=== PATIENT | male | born 1950 | race Caucasian/White ===

== ENCOUNTER → 2024-01-28 08:54 | Outpatient (REF) | payer MEDICARE, SELFPAY ==
[2024-01-28 11:12] LABS: ALT (SGPT) 32 U/L (0-50); AST (SGOT) 43 U/L (17-59); Albumin 4.4 g/dl (3.5-5.0); Alkaline Phosphatase 51 U/L (38-126); Blood Urea Nitrogen 18 mg/dl (9-20); Carbon Dioxide 27 mmol/L (22-30); Chloride 105 mmol/L (98-107); Glucose 94 mg/dl (70-99); HDL Cholesterol 75 mg/dl; LDL Cholesterol, Calculated 69 mg/dl; Potassium 4.9 mmol/L (3.5-5.1); Sodium 139 mmol/L (135-145); Total Cholesterol 157 mg/dl (50-199); Triglyceride 68 mg/dl (10-149); Very Low Density Lipoprotein 13 mg/dl (0-30); eGFR > 60.00
[2024-01-28 13:14] LABS: Glycohemoglobin (HgbA1c) 6.1 % (4.0-5.6)
== END ==
LOC: REG 08:54
PROVIDERS: ATTENDING PHYSICIAN Family Medicine
DX: R73.03 Prediabetes (principal); E78.5 Hyperlipidemia, unspecified
CPT/HCPCS: 36415; 80053; 80061; 83036

== ENCOUNTER → 2024-08-20 09:46 | Outpatient (REF) | payer MEDICARE, SELFPAY | LOC: RAD 09:46 | PROVIDERS: ATTENDING PHYSICIAN Internal Medicine; FAMILY PHYSICIAN Internal Medicine | DX: I49.1 Atrial premature depolarization (principal); I47.10 Supraventricular tachycardia, unspecified; I63.232 Cerebral infarction due to unspecified occlusion or stenosis of left carotid arteries; I65.23 Occlusion and stenosis of bilateral carotid arteries | CPT/HCPCS: 93225; 93226; 93880 ==

== ENCOUNTER → 2024-08-26 10:16 | Outpatient (REF) | payer MEDICARE, SELFPAY | LOC: HWRCS 10:16 | PROVIDERS: ATTENDING PHYSICIAN Internal Medicine; FAMILY PHYSICIAN Internal Medicine | DX: I35.0 Nonrheumatic aortic (valve) stenosis (principal); I10 Essential (primary) hypertension | CPT/HCPCS: 93306 ==

== ENCOUNTER → 2024-09-02 07:42 | Outpatient (REF) | payer MEDICARE, SELFPAY | LOC: DHCBC/DCA 07:42 | PROVIDERS: ATTENDING PHYSICIAN Internal Medicine; FAMILY PHYSICIAN Internal Medicine | DX: I63.232 Cerebral infarction due to unspecified occlusion or stenosis of left carotid arteries (principal); I65.23 Occlusion and stenosis of bilateral carotid arteries; R07.9 Chest pain, unspecified | CPT/HCPCS: 78452; 93017; A9500; J2785 ==

== ENCOUNTER 2025-07-18 18:16 | Emergency (ER) | payer MEDICARE, SELFPAY ==
[2025-07-18 18:38] VITALS: BP 124/59
[2025-07-18 19:10] LABS: Hematocrit 47.4 % (39.0-52.0); Hemoglobin 15.8 g/dL (13.0-18.0); Mean Corp Hgb Conc. 33.3 g/dL (33.0-37.0); Mean Corpuscular Volume 90.8 fL (80.0-94.0); Nucleated Red Blood Cells % 0 % (-); Platelet Count 159 10^3/uL (130-400); Red Cell Dist. Width 13.0 % (11.5-14.5)
[2025-07-18 19:22] LABS: ALT (SGPT) 41 U/L (0-50); AST (SGOT) 38 U/L (17-59); Albumin 4.4 g/dl (3.5-5.0); Alkaline Phosphatase 59 U/L (38-126); Blood Urea Nitrogen 14 mg/dl (9-20); Calcium 10.1 mg/dl (8.4-10.2); Carbon Dioxide 34 mmol/L (22-30); Chloride 101 mmol/L (98-107); Glucose 116 mg/dl (70-99); Potassium 4.7 mmol/L (3.5-5.1); Sodium 137 mmol/L (135-145); Total Protein 7.4 g/dl (6.3-8.2); eGFR > 60.00
[2025-07-18 20:49] VITALS: BP 116/56
--- NOTE | 2025-07-18 21:23 | ED.SKININJ ---
HPI-Injury
General
Chief Complaint: Head Injury
Source: patient and spouse
Exam Limitations: none
Time Seen by Provider: 07/18/25 20:37
Nursing documentation reviewed up to this point in time: agreed with
History of Present Illness-Injury
Is this injury a work related problem?: No
Is pt an associate of [facility]?: No
Initial Injury comments:
Patient to emergency department after an episode at home states he was sitting in Jacuzzi for approximately 20-25 minutes. States when he got out of the Jacuzzi he had a syncopal episode. He fell back and hit his head on a shelf. Sustained a
laceration to his posterior scalp. Brought to the emergency department by spouse for evaluation. Injury occurred just prior to arrival. He denies any chest pain pressure, shortness of breath. Denies any lightheadedness dizziness blurred vision.
Past History
Past History
ED Past Medical History: HTN and Hypercholesterolemia
Social History
Tobacco: Former smoker
Alcohol: Occasional
Drug: None
Personal:
Living: with family
Review of Systems
Review of Systems
Allergies reviewed?: Yes
All Other Systems: ROS reviewed and negative except as documented in HPI and ROS
Constitutional: Reports no symptoms
EENT: Reports no symptoms
Respiratory: Reports no symptoms
Cardiac: Reports syncope
ABD/GI: Reports no symptoms
: Reports no symptoms
Musculoskeletal: Reports neck pain
Skin: Reports other (Laceration to posterior)
Neurological: Reports no symptoms
Psychiatric: Reports no symptoms
Skin Exam
Laceration
Posterior Scalp:
Length in cm: 3
Orientation: horizontal
Type of Laceration: simple
Any active bleeding?: low grade venous oozing
Distal skin color and temperature: normal-warm & good color
Normal distal neurovascular exam: Yes
Range of motion: full
Phy Exam
General Physical Exam
General Presentation: well appearing and mild distress
General age: appears stated age
General Skin: warm and dry
General Habitus: normal
General Mental: alert
Cardiovascular Exam
Cardiovascular Exam: regular rate/rhythm
Neurological Exam
Neurological Exam: alert, oriented x3, CN II-XII intact, no motor deficits, no sensory deficits and speech normal
Dave Coma Scale
Eye Opening: Spontaneous
Verbal Response: Oriented
Motor Response: Obeys Commands
GCS Total Score: 15
Musculoskeletal Exam
Musculoskeletal Exam: full ROM, no edema and neuro vasc intact
Skin Exam
Skin Exam: normal color, warm/dry, no rash and other (Laceration to posterior scalp)
Psychiatric Exam
Psychiatric Exam: normal mood/affect
Course
Orders/Labs/Results
Orders:
Orders
07/18/25 18:42
CT Cervical Spine W/o Iv Contr Urgent
Comment:
Reason For Exam: syncope and head injury
CT Head W/o Iv Contrast Urgent
Comment:
Reason For Exam: syncope and head injury
07/18/25 18:43
EKG [Electrocardiogram (*1)] Urgent
Reason for Study: Syncope
EKG- Treatment ONCE
07/18/25 19:01
CMP [Comprehensive Metabolic Panel] Urgent
Complete Blood Count/With Diff Urgent
07/18/25 21:18
Hydrocodone 5/APAP 325 [[place] 5/325] 1 tablet PO NOW STA
Abnormal Lab Results
07/18/25
19:01
WBC 12.3 H 10^3/uL
(4.8-10.8)
MPV 11.5 H fL
(7.4-10.4)
Abs Immat Gran (auto) 0.1 H 10^3/uL
(0-0.05)
Absolute Neuts (auto) 8.9 H 10^3/uL
(1.4-6.5)
Absolute Monos (auto) 0.9 H 10^3/uL
(0.1-0.6)
Immature Gran % 0.6 H %
(0-0.5)
Lymphocytes % 18.0 L %
(20.5-51.1)
Carbon Dioxide 34 H mmol/L
(22-30)
Glucose 116 H mg/dl
(70-99)
07/18/25 19:01
07/18/25 19:01
Vital Signs
Initial and Last Documented VS:
Initial Vital Signs
Temp Pulse Resp BP Pulse Ox
97.8 F 59 18 124/59 96
07/18/25 18:38 07/18/25 18:38 07/18/25 18:38 07/18/25 18:38 07/18/25 18:38
Last Documented Vital Signs
Temp Pulse Resp BP Pulse Ox
97.8 F 64 19 116/56 96
07/18/25 18:38 07/18/25 20:50 07/18/25 20:50 07/18/25 20:49 07/18/25 18:38
Procedures
Laceration Closure
Posterior Scalp:
Status of Wound: clean
Description of Wound Edges: sharp
Preparation: cleaned with saline
Anesthesia: 1% Lidocaine with epi
Revision/Debridement: routine- no revision
Wound exploration: explored to base- no FB
Type of Closure: single layer closure
Skin Closure Material: skin wing
*Pulse Oximetry
SaO2: 96
Oxygen Mode of Delivery: Room air
Patient hypoxic: no
*Critical Care Note
Total Time (30-74mins, 75-104mins- exclusive of procedures): Not Applicable
Update Note
Update Note:
Patient to the emergency department after syncopal event at home. Patient states he was sitting in a Jacuzzi for approximately 20 to 25 minutes in an enclosed space. States when he got out of the Jacuzzi he passed out. He hit the back of his head
on a shelf and sustained a laceration to his posterior scalp. He denies any chest pain/pressure or shortness of breath headache dizziness or blurred vision. No prior history of same. Brought to emergency department by his spouse and he is awake
alert and oriented on exam. Wound was cleansed with normal saline and dried. Anesthetized with lidocaine 1% with epi. Wound closed with 6 skin wing. Neurologically he has had his baseline neuroexam is within normal limits. Head CT and
cervical spine CT results reviewed. No acute findings. He will be discharged home with close follow-up with PCP. He was given instructions on signs and symptoms to return to the emergency department he is agreeable to this plan.
ED Attending Note
-
Portions of this chart may have been created with voice recognition software.� Occasional wrong word or��sound alike� substitutions may have occurred due to the inherent limitations of voice recognition software.
Discharge Plan
Departure
Patient Disposition: Home (Routine Discharge)
Date of Disposition: 07/18/25
Time of Disposition: 21:18
Patient with high blood pressure during this ER visit?: No
Condition: Good
Covid-19: Not Applicable
Discharge Problem:
Head injury, Syncope
Instructions: Syncope (fainting), Head Injury in Adults (DC), Laceration Repair With Wing (DC), Cold therapy for pain, Musculoskeletal Pain
Prescriptions:
New
hydrocodone-acetaminophen 5-325 mg tablet
1 tab PO Q8H PRN (Reason: Pain) Qty: 8 0RF
No Action
amlodipine 5 MG tablet
5 mg PO DAILY
sildenafil [Viagra] 100 MG tablet
100 mg PO .DAILY
Patient Comments:
08/03/2019 taken with lisinopril every day
aspirin 81 MG tablet,delayed release (DR/EC)
81 mg PO DAILY
multivitamin with folic acid [Tab-A-Josefina] 1 TABLET tablet
1 tab PO DAILY
glucosamine-chondroitin 1 EACH capsule
1 ea PO DAILY
polyvinyl alcohol-povidone(PF) [Refresh Classic (PF)] 10 DROPS dropperette
1 drops BOTH EYES QIDPRN PRN (Reason: dry eye)
lisinopril 20 MG tablet
40 mg PO DAILY Qty: 60 0RF
rosuvastatin 20 MG tablet
20 mg PO QPM Qty: 30 0RF
Activity Restrictions/Additional Instructions:
Follow-up with your family doctor. [place] can be removed by your family doctor in 7 to 10 days.
Interventions
Interventions:
*Risk Screen - Suicide Last Done: 07/18/25 18:38
*General Assessment Last Done: 07/18/25 18:38
*Neglect/Abuse Screening Last Done: 07/18/25 20:48
*ED- Fall Risk Assessment Last Done: 07/18/25 20:48
*ED COVID-19 Vaccine History Last Done: 07/18/25 18:38
*ED Influenza Vaccine History Last Done: 07/18/25 18:38
*Nursing Disposition Last Done: 07/18/25 21:26
ED- Neurological Assessment Last Done: 07/18/25 20:46
ED-Skin Assessment Last Done: 07/18/25 20:47
Discharge Date and Time
Print Language: [place]
Musculoskeletal Injury Exam
Musculoskeletal Injury Exam
Posterior Neck:
Pain with Movement?: Moderate
Tender to palpation?: Moderate
Soft tissue swelling?: None
External deformity and angulation?: None
Joint effusion?: None
Contusion?: Moderate
Hematoma-local bleeding into tissue?: None
Strain- Sprain- Tear (Connective tissue injury)?: Moderate
Crepitus with movement?: No
Joint instability?: No
Range of motion: Limited
Distal skin color and temperature: normal-warm & good color
Normal distal neurovascular exam?: Yes
[2025-07-18 21:26] VITALS: BP 126/68
[2025-07-18] MEDS: NORCO 5/325 1 TABLET PO (21:26)
== END 2025-07-18 21:57 | disposition home or self-care (01) ==
LOC: EMR 18:16
PROVIDERS: EMERGENCY PHYSICIAN Student in an Organized Health Care Education/Training Program; FAMILY PHYSICIAN Internal Medicine
DX: S01.01XA Laceration without foreign body of scalp, initial encounter (principal); R55 Syncope and collapse; I10 Essential (primary) hypertension; E78.00 Pure hypercholesterolemia, unspecified; Z79.82 Long term (current) use of aspirin; Z87.891 Personal history of nicotine dependence; W01.198A Fall on same level from slipping, tripping and stumbling with subsequent striking against other object, initial encounter
CPT/HCPCS: 99284; 12002; 70450; 72125; 80053; 85025; 93005

== ENCOUNTER → 2025-08-01 08:00 | Outpatient (REF) | payer MEDICARE, SELFPAY ==
[2025-08-01 08:59] LABS: Hematocrit 46.0 % (39.0-52.0); Hemoglobin 15.0 g/dL (13.0-18.0); Mean Corp Hgb Conc. 32.6 g/dL (33.0-37.0); Mean Corpuscular Volume 91.8 fL (80.0-94.0); Nucleated Red Blood Cells % 0 % (-); Platelet Count 197 10^3/uL (130-400); Red Cell Dist. Width 12.8 % (11.5-14.5)
[2025-08-01 15:09] LABS: ALT (SGPT) 21 U/L (0-50); AST (SGOT) 27 U/L (17-59); Albumin 4.1 g/dl (3.5-5.0); Alkaline Phosphatase 68 U/L (38-126); Blood Urea Nitrogen 17 mg/dl (9-20); Calcium 10.0 mg/dl (8.4-10.2); Carbon Dioxide 32 mmol/L (22-30); Chloride 103 mmol/L (98-107); Glucose 109 mg/dl (70-99); HDL Cholesterol 58 mg/dl; LDL Cholesterol, Calculated 60 mg/dl; Potassium 4.5 mmol/L (3.5-5.1); Sodium 138 mmol/L (135-145); Total Protein 7.0 g/dl (6.3-8.2); Very Low Density Lipoprotein 18 mg/dl (0-30); eGFR > 60.00
[2025-08-01 16:08] LABS: ALT (SGPT) 22 U/L (0-50); AST (SGOT) 26 U/L (17-59)
[2025-08-01 16:57] LABS: PSA, Total - Screen 0.64 ng/ml (0.0-4.0)
== END ==
LOC: REG 08:00
PROVIDERS: ATTENDING PHYSICIAN Internal Medicine; FAMILY PHYSICIAN Internal Medicine
DX: R73.03 Prediabetes (principal); I10 Essential (primary) hypertension; E78.5 Hyperlipidemia, unspecified; I63.232 Cerebral infarction due to unspecified occlusion or stenosis of left carotid arteries
CPT/HCPCS: 36415; 80053; 80061; 84443; 84450; 84460; 85025; G0103